=== PATIENT | female | born 1980 | race Caucasian/White ===

== ENCOUNTER 2023-12-10 04:24 | Day surgery (SDC) | payer BC, OTHER ==
[2023-12-08 14:42] VITALS: BMI 25.0
[2023-12-10] MEDS ORDERED: BUPIVACAINE HCL/PF 0.5% (5MG/ML) 10 ML VIAL ONE (10:18)
[2023-12-10] MEDS ORDERED: LIDOCAINE HCL 1%, 10 MG/ML (20ML VIAL) ONE (10:18)
[2023-12-10] MEDS ORDERED: MIDAZOLAM HCL 2 MG/2 ML SINGLE DOSE VIAL ONE (10:41)
[2023-12-10] MEDS ORDERED: ceFAZolin SODIUM 1 GM VIAL ONE (10:50)
[2023-12-10] MEDS: ceFAZolin SODIUM 1 GM VIAL IVPB ONE (10:51)
[2023-12-10] MEDS: BUPIVACAINE HCL/PF 0.5% (5 MG/ML) 30 ML VIAL IJ ONE ×2 (10:59)
[2023-12-10] MEDS: LIDOCAINE HCL 1%, 10 MG/ML (20ML VIAL) NR ONE ×2 (10:59)
[2023-12-10] MEDS ORDERED: ONDANSETRON 4 MG/2 ML VIAL IVPUSH PRN (11:01)
[2023-12-10 11:57] VITALS: RESP 20
[2023-12-10 13:53] VITALS: BP 101/64; PULSE 84; TEMP 98
== END 2023-12-10 13:45 | disposition home or self-care (01) ==
LOC: JASU-SURG 04:24
PROVIDERS: ATTEND Surgery
PROC: 0JB60ZZ Excision of Chest Subcutaneous Tissue and Fascia, Open Approach (ICD-10-PCS; principal; 2023-12-10 10:00)
DX: L72.3 Sebaceous cyst (principal)
CPT/HCPCS: 81025; 88304-TC